=== PATIENT | female | born 1955 | race Caucasian/White ===

== ENCOUNTER 2018-06-07 13:38 | Inpatient (IN) | payer BC ==
[~2018-06-07] VITALS: Ht 154.9 cm; Wt 62.6 kg
--- NOTE | 2018-06-07 13:38 | NUR ---
PT BIBRA FROM HOME TO ER BED 09 C/O LIGHTHEADEDNESS AND DIZZY SINCE THIS MORNING. 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 DENIES CP AT THIS TIME. GOWNED AND PLACED ON MONITOR. HYPERTENSIVE OTHERWISE STABLE VITALS. AWAITING MD DOMINGUEZ.
--- NOTE | 2018-06-07 13:52 | NUR ---
CAROL WHITTAKER AT BEDSIDE FOR EVAL.
[2018-06-07] MEDS ORDERED: IV NS 0.9% 1,000 ML BAG IV ONE (14:00)
[2018-06-07 14:16] LABS: BASOPHILS % (AUTO) 0.3 % (0.0-2.0); EOSINOPHILS % (AUTO) 0.1 % (0.0-6.0); HEMATOCRIT 39 % (33-45); HEMOGLOBIN 12.8 g/dL (11.5-14.8); LYMPHOCYTES # (AUTO) 1.2 /CMM (0.8-4.8); LYMPHOCYTES % (AUTO) 14.1 % (20.0-44.0); MEAN CORPUSCULAR HEMOGLOBIN 29 PG (26.0-33.0); MEAN CORPUSCULAR HGB CONC 33 g/dl (31.0-36.0); MEAN CORPUSCULAR VOLUME 87 fL (82-100); MONOCYTES # (AUTO) 0.3 /CMM (0.1-1.30); MONOCYTES % (AUTO) 3.3 % (2.0-12.0); NEUTROPHILS # (AUTO) 7.1 /CMM (1.8-8.9); NEUTROPHILS % (AUTO) 82.2 % (43.0-81.0); PLATELET COUNT (AUTO) 404 /CMM (150-450); RDW COEFFICIENT OF VARIATION 13.6 (11.5-15.0); RED BLOOD CELL COUNT(AUTO) 4.41 MIL/uL (4.0-5.2); WHITE BLOOD COUNT (AUTO) 8.7 K/uL (4.3-11.0)
--- NOTE | 2018-06-07 14:22 | NUR ---
ACCU CK 127
--- NOTE | 2018-06-07 14:22 | NUR ---
IV STARTED 20G IV RT AC LABS SENT TO LAB AWAITING EVALUATION BY ER PROVIDER.
[2018-06-07 14:36] LABS: BILIRUBIN,DIRECT 0.1 mg/dL (0.0-0.2); BILIRUBIN,TOTAL 0.4 mg/dL (0.2-1.0); CALCIUM, SERUM 9.1 mg/dL (8.5-10.1); CREATININE 0.7 mg/dL (0.6-1.3); POTASSIUM 3.3 mmol/L (3.5-5.1); TOTAL PROTEIN, SERUM 7.6 g/dL (6.4-8.2)
[2018-06-07 14:57] LABS: INR 0.92 (0.87-1.13)
[2018-06-07 15:22] LABS: APPEARANCE,URINE Clear (CLEAR); BILIRUBIN,URINE Negative (NEGATIVE); BLOOD, URINE Negative Ery/uL (NEGATIVE); COLOR,URINE Light yellow (YELLOW); KETONES,URINE Negative (NEGATIVE); LEUKOCYTE ESTERASE ,URINE Negative (NEGATIVE); NITRITE, URINE Negative (NEGATIVE); PH,URINE 8.5 (5.0-8.0); PROTEIN,URINE Negative (NEGATIVE); UGLUCOSE Negative (NEGATIVE); UROBILINOGEN,URINE 0.2 EU/dL (0.2)
[2018-06-07] MEDS ORDERED: METO-356 PO (15:41)
[2018-06-07] MEDS ORDERED: ESCI20TA PO (15:41)
[2018-06-07] MEDS ORDERED: MULT-24 PO (15:41)
[2018-06-07] MEDS ORDERED: LOSA1TAB36 PO (15:41)
[2018-06-07] MEDS ORDERED: CHOL100044 PO (15:41)
[2018-06-07] MEDS ORDERED: SIMV20TA6 PO (15:41)
--- NOTE | 2018-06-07 15:53 | NUR ---
CALLED NURSE SUP FOR TELE BED
--- NOTE | 2018-06-07 16:29 | NUR ---
CALLED [facility] FOR PANEL - DR THOMPSON
--- NOTE | 2018-06-07 16:29 | NUR ---
PANEL ON-CALL PAGED
--- NOTE | 2018-06-07 16:46 | NUR ---
REPORT GIVEN TO NERI FOWLER FOR WADE
[2018-06-07 17:00] VITALS: BP 149/83
[2018-06-07] MEDS ORDERED: ZOLPIDEM TARTRATE 5 MG TABLET PO PRN (17:00)
[2018-06-07] MEDS ORDERED: hydrALAZINE HCL 25 MG TABLET PO PRN (17:00)
[2018-06-07] MEDS ORDERED: MAG HYDROX/AL HYDROX/SIMETH 30 ML UDC PO PRN (17:00)
[2018-06-07] MEDS ORDERED: Z GUARD REMEDY 2 OZ OINT TP PRN (17:00)
[2018-06-07] MEDS ORDERED: ONDANSETRON HCL/PF 4 MG/2 ML VIAL IVP PRN (17:00)
[2018-06-07] MEDS ORDERED: MAGNESIUM HYDROXIDE 30 ML UDC PO PRN (17:00)
[2018-06-07] MEDS ORDERED: HYDROCODONE/APAP 5/325MG 1 EACH TABLET PO PRN (17:00)
--- NOTE | 2018-06-07 17:00 | NUR ---
MS RN NOTES ADMITTED FROM ER IN STABLE CONDITION. ALERT ORIENTED X4 . NO ACUTE DISTRESS NOTED. BREATHING UNLABORED. NO SOB NOTED. IV ACCESS PATENT AND INTACT, NO REDNESS OR SWELLING NOTED. ORIENTED TO THE ROOM. NEEDS ATTENDED AND ANTICIPATED. SAFETY MEASURES IN PLACE. CALL LIGHT WITHIN REACH. WILL CONTINUE TO MONITOR ACCORDINGLY.PLACED TELE MONITOR , SINUS RHYTHM. VITAL SIGNS STABLE. DENIED ANY PAIN.
[2018-06-07] MEDS: METOPROLOL SUCCINATE 25 MG TAB.SR.24H PO SCH (18:04)
[2018-06-07] MEDS: SIMVASTATIN 20 MG TABLET PO SCH (18:04)
[2018-06-07] MEDS: IV NS 0.9% 1,000 ML IV PRN (18:04)
[2018-06-07] MEDS: ACETAMINOPHEN 325 MG TABLET PO PRN ×2 (18:35→20:41)
--- NOTE | 2018-06-07 19:00 | NUR ---
STATE ASSESSED PROPERTIES DIRECTOR NOTES PATIENT IN BED ,ALERT ORIENTED X4. AT BEDSIDE. NO ACUTE DISTRESS NOTED. BREATHING UNLABORED. NO SOB NOTED. IV ACCESS PATENT AND INTACT, NO REDNESS OR SWELLING NOTED. DUE MEDICATIONS GIVEN, NO ASE NOTED. NEEDS ATTENDED AND ANTICIPATED. SAFETY MEASURES IN PLACE. CALL LIGHT WITHIN REACH. ENDORSED TO NIGHT NURSE FOR CONTINUITY OF CARE.
--- NOTE | 2018-06-07 19:00 | NUR ---
RAMP SERVICE AGENT NOTES PT AWAKE AND ALERT. AT BEDSIDE. NO COMPLAINTS OF DISTRESS OR SOB AT THIS TIME. PT COMPLAINS OF A "SLIGHT" HEADACHE. PT DOES NOT WANT MEDICATION AT THIS TIME. WILL CONTINUE TO FOLLOW UP. PT HAS A LEFT AC IV #20 RUNNING NS @75ML/HR. PT TOLERATING FLUIDS WELL. PT IS TELE MONITORED AT NORMAL SINUS RHYTHM WITH A RATE OF 89. SAFETY PRECAUTIONS IN PLACE. BED IN LOWEST LOCKED POSITION, X2 SIDE RAILS UP, AND CALL LIGHT WITHIN REACH. WILL CONTINUE TO MONITOR.
[2018-06-07 20:18] VITALS: BP 146/85
--- NOTE | 2018-06-07 21:40 | NUR ---
RN NOTES INFORMED KURTIS DOWLING OF PATIENTS POTASSIUM LEVEL OF 3.3. NURSES MEDICAL ASSISTANTS PHLEBOTOMISTS KURTIS ORDERED 40MEQ KDUR. WILL ADMINISTER AND CONTINUE MONITORING PATIENT.
[2018-06-07] MEDS ORDERED: POTASSIUM CHLORIDE 20 MEQ TAB.PRT.SR PO ONE (22:00)
[2018-06-08] VITALS (8 sets, daily range): BP systolic 113–146; BP diastolic 72–85
[2018-06-08] MEDS: IV NS 0.9% 1,000 ML IV PRN ×2 (06:50→20:39)
--- NOTE | 2018-06-08 07:01 | NUR ---
RESIDENTIAL CONSTRUCTION INSTRUCTOR NOTES PT AWAKE AND ALERT. NO COMPLAINTS OF PAIN, DISTRESS OR SOB A THIS TIME. PT HAS A LEFT AC IV #20 RUNNING NS @75ML/HR. PT TOLERATING FLUIDS WELL. PT IS TELE MONITORED AT NORMAL SINUS RHYTHM WITH A RATE OF 89. ALL PATIENT NEEDS MET OVERNIGHT. SAFETY PRECAUTIONS IN PLACE. BED IN LOWEST LOCKED POSITION, X2 SIDE RAILS UP, AND CALL LIGHT WITHIN REACH. WILL ENDORSE TO DAY SHIFT NURSE FOR CONTINUITY OF CARE.
[2018-06-08 07:33] LABS: BASOPHILS % (AUTO) 0.1 % (0.0-2.0); EOSINOPHILS % (AUTO) 0.8 % (0.0-6.0); HEMATOCRIT 37 % (33-45); HEMOGLOBIN 12.4 g/dL (11.5-14.8); LYMPHOCYTES # (AUTO) 2.5 /CMM (0.8-4.8); LYMPHOCYTES % (AUTO) 26.5 % (20.0-44.0); MEAN CORPUSCULAR HEMOGLOBIN 29 PG (26.0-33.0); MEAN CORPUSCULAR HGB CONC 33 g/dl (31.0-36.0); MEAN CORPUSCULAR VOLUME 89 fL (82-100); MONOCYTES # (AUTO) 0.6 /CMM (0.1-1.30); MONOCYTES % (AUTO) 6.2 % (2.0-12.0); NEUTROPHILS # (AUTO) 6.3 /CMM (1.8-8.9); NEUTROPHILS % (AUTO) 66.4 % (43.0-81.0); PLATELET COUNT (AUTO) 365 /CMM (150-450); RED BLOOD CELL COUNT(AUTO) 4.21 MIL/uL (4.0-5.2); WHITE BLOOD COUNT (AUTO) 9.5 K/uL (4.3-11.0)
[2018-06-08 07:50] LABS: CREATININE 0.7 mg/dL (0.6-1.3); POTASSIUM 3.9 mmol/L (3.5-5.1)
--- NOTE | 2018-06-08 08:00 | NUR ---
MANAGER MBA OPENING NOTES RECEIVED PT. IN BED A &OX4. BREATHING UNLABORED, AND EVENLY ON ROOM AIR. PT. DENIES CHEST PAIN, SOB. NO S/S OF ACUTE DISTRESS. IV FLUIDS RUNNING AT 75 ML/HR. BED IS IN LOWEST, AND LOCKED POSITION. 2 SIDE RAILS UP, AND INSTRUCTED PT. TO USE CALL LIGHT FOR ASSISTANCE. ALL NEEDS MET. TELE MONITOR READING NORMAL SINUS RHYTHM 77 BPM.
[2018-06-08] MEDS ORDERED: LOSARTAN/HCTZ 50-12.5MG/ 1 EA TABLET PO SCH (09:00)
[2018-06-08] MEDS: MULTIVITAMINS,THERAGRAN 1 UDTAB TABLET PO SCH (09:07)
[2018-06-08] MEDS: ESCITALOPRAM OXALATE (10 MG) 10 MG TABLET PO SCH (09:07)
[2018-06-08] MEDS: LISINOPRIL (10MG) 10 MG TABLET PO SCH ×2 (09:07→20:37)
--- NOTE | 2018-06-08 09:41 | NUR ---
PT. WAS MOVED TO ROOM 207 BED 1, IN STABLE CONDITION. REPORT WAS GIVEN VIA PHONE TO KANIKA. PT. WAS TAKEN TO ROOM 207 IN A WHEELCHAIR WITH SEO STRATEGIST, PT. BELONGINGS, CHART, AND IV FLUIDS.
--- NOTE | 2018-06-08 09:45 | NUR ---
ms barn hand notes Received report from Charito. Received patient via wheelchair accompanied by FUEL SYSTEM MAINTENANCE WORKER and RN assigned. Patient is in stable condition at this time. Verbally responsive and able to make needs known. IV intact and patent with IVF infusing well. Kept comfortable in bed, call light with in patient reach, no complaint of pain or discomfort at this time. Will continue to monitor accordingly.
[2018-06-08] MEDS: METOPROLOL SUCCINATE 25 MG TAB.SR.24H PO SCH (17:02)
[2018-06-08] MEDS: SIMVASTATIN 20 MG TABLET PO SCH (17:03)
--- NOTE | 2018-06-08 19:12 | NUR ---
ms rn closing notes All needs provided, attended, and anticipated. Patient in stable condition at this time. Endorsed to next shift RN to continue care. Call light with in patient reach.
--- NOTE | 2018-06-08 19:55 | NUR ---
RN INITIAL NOTES: Received report from Frank FOWLER. Pt in bed, awake, a/o x4, on ra, respiration even and unlabored, denies any pain or discomfort at this time. iv access patent and flushing well, infusing with ns at 75ml/hr. No s/s of redness, or infiltration noted at the iv site. Discussed with pt about plan of care. Safety precautions for fall initiated, call light in reach, will continue monitoring pt.
--- NOTE | 2018-06-08 20:52 | NUR ---
pt's refusal for lisinopril: pt has scheduled lisinopril 10mg at night, orthostatic bp was taken, gaby see vs log for details, she stated she doesnt feel the need to take the dose for tonight as her bp was in normal range, and that the am doctor told her that she only needs to take a dose of prinivil in am and will check her blood works then tomorrow will decide if needs to increase or decrease her dose of prinivil. pt was talking on the phone with her brother which is a surgeon, and per her brother he advised the pt not to take the medication at this time. education provided to the pt. will monitor pt's vs/bp.
--- NOTE | 2018-06-08 22:00 | NUR ---
RN NOTES: PT PROVIDED WITH TOILETRIES, AND WASH CLOTH, STATED SHE WOULD LIKE TO FRESHEN UP A BIT, BEFORE GOING TO BED.
--- NOTE | 2018-06-09 02:55 | NUR ---
rn notes: seen pt sleeping at this time, appears calm and comfortable, no sob noted
--- NOTE | 2018-06-09 06:50 | NUR ---
rn closing notes: pt in bed, awake, denies any pain or discomfort at this time, iv access remains patent and flushing well, infusing with ns at 75ml/hr. no redness, swelling or infiltration noted on iv site. vs remains stable, needs attended, denies any light headedness or dizziness. for possible dc today, exit care completed. safety precautions for fall remains engaged, call light in reach, will endorse to day rn for palmer.
[2018-06-09 06:59] LABS: BASOPHILS % (AUTO) 0.4 % (0.0-2.0); EOSINOPHILS % (AUTO) 1.8 % (0.0-6.0); HEMATOCRIT 38 % (33-45); HEMOGLOBIN 12.5 g/dL (11.5-14.8); LYMPHOCYTES # (AUTO) 3.3 /CMM (0.8-4.8); LYMPHOCYTES % (AUTO) 33.8 % (20.0-44.0); MEAN CORPUSCULAR HEMOGLOBIN 30 PG (26.0-33.0); MEAN CORPUSCULAR HGB CONC 33 g/dl (31.0-36.0); MEAN CORPUSCULAR VOLUME 89 fL (82-100); MONOCYTES # (AUTO) 0.8 /CMM (0.1-1.30); MONOCYTES % (AUTO) 7.7 % (2.0-12.0); NEUTROPHILS # (AUTO) 5.5 /CMM (1.8-8.9); NEUTROPHILS % (AUTO) 56.3 % (43.0-81.0); PLATELET COUNT (AUTO) 398 /CMM (150-450); RDW COEFFICIENT OF VARIATION 13.6 (11.5-15.0); RED BLOOD CELL COUNT(AUTO) 4.24 MIL/uL (4.0-5.2); WHITE BLOOD COUNT (AUTO) 9.8 K/uL (4.3-11.0)
[2018-06-09 07:15] LABS: ALBUMIN 3.7 g/dL (3.4-5.0); BILIRUBIN,TOTAL 0.6 mg/dL (0.2-1.0); CALCIUM, SERUM 8.5 mg/dL (8.5-10.1); CREATININE 0.7 mg/dL (0.6-1.3); PHOSPHORUS 3.4 mg/dL (2.5-4.9); POTASSIUM 3.7 mmol/L (3.5-5.1)
--- NOTE | 2018-06-09 07:25 | NUR ---
ms rn initial notes Received patient in bed, asleep, head of bed elevated, no SOB or distress noted. On room air and tolerated well. IV intact and patent with IVF infusing well. No facial grimace noted. Alert and oriented x 3, verbally responsive and able to make needs known. Call light with in patient reach, will continue to monitor accordingly.
[2018-06-09 08:00] VITALS: BP 138/88
[2018-06-09 08:41] VITALS: BP 133/88
[2018-06-09] MEDS: ESCITALOPRAM OXALATE (10 MG) 10 MG TABLET PO SCH (08:41)
[2018-06-09] MEDS: MULTIVITAMINS,THERAGRAN 1 UDTAB TABLET PO SCH (08:41)
[2018-06-09] MEDS: LISINOPRIL (10MG) 10 MG TABLET PO SCH (08:41)
[2018-06-09] MEDS ORDERED: LISI10TA59 PO (10:15)
--- NOTE | 2018-06-09 12:00 | NUR ---
ms corn husk baler instructions Discharge instructions given to patient and able to understand. Signed discharge paper and belonging list, no items missing. Prescription for Lisinopril given. Health teaching and education rendered. Informed patient too follow up with primary health care physician in 1-2 weeks, and follow up with Dr. Christensen, address and office number provided. Vital signs checked and recorded. Discontinued IV access and pressured applied to prevent bleeding. Flu is out of season and <65 years old for PNA vaccine. Patient left via wheelchair accompanied by RN assigned in stable condition, no complaint of pain or discomfort noted. No SOB or distress noted. MD and charge nurse made aware.
[2018-06-10] MEDS ORDERED: LISINOPRIL (10MG) 10 MG TABLET PO SCH (09:00)
== END 2018-06-09 12:00 | disposition home or self-care (01) | DRG 305 ==
LOC: ER 13:41 → TELE 16:35 → MED 06-08 08:34 → MEDSG2 06-08 09:45
PROVIDERS: ADMIT Internal Medicine; ATTEND Internal Medicine
DX: I16.0 Hypertensive urgency (principal); E87.1 Hypo-osmolality and hyponatremia; E86.0 Dehydration; E78.5 Hyperlipidemia, unspecified; E87.6 Hypokalemia; F41.9 Anxiety disorder, unspecified; Z83.3 Family history of diabetes mellitus; R55 Syncope and collapse
CPT/HCPCS: 36415; 71045-TC; 80048-TC; 80053-TC; 80061-TC; 80076-TC; 81000-TC; 82962-TC; 83735-TC; 84100-TC; 84484-TC; 85025-TC; 85730-TC; 87081-TC; 93307-TC; A4606; J7030; Z7610